=== PATIENT | male | born 1990 | race African-American/Black ===

== ENCOUNTER 2016-03-22 23:50 | Emergency (ER) ==
[2016-03-23] MEDS ORDERED: DECADRON IM ONE (00:20)
[2016-03-23] MEDS ORDERED: ROCEPHIN IM ONE (00:20)
[2016-03-23] MEDS ORDERED: XYLOCAINE-MPF 1% INJ ONE (00:20)
[2016-03-23] MEDS ORDERED: MOTRIN PO ONE (00:25)
--- NOTE | 2016-03-23 00:25 | PROVIDER DOCUMENTATION ---
HPI-EENT General - General Chief Complaint: Cold Symptoms Stated Complaint: SORE THROAT,ITCHING EYES Time Seen by Provider: 03/23/16 00:03 Source: patient Allergies/Adverse Reactions: Patient Allergies Allergy/AdvReac Type Severity Reaction Status Date / Time No Known Allergies Allergy Verified 07/28/15 18:22 - History of Present Illness-EENT General Nature of Presenting Problem: 25 y/o AAM presents to the ED with a sore throat and watery itchy eyes that began this morning. Pt denies cou EENT Location: reports: eye (R), eye (L), throat Quality of Pain: reports: aching (throat), other (itchy eyes) Severity: reports: moderate Onset/Duration: reports: this morning Timing: reports: still present Prearrival Treatment: Initiated no prearrival treatment Associated Symptoms: reports: sore throat. denies: cough, facial pain/swelling , nasal congestion/drainage, sinus infection Review of Systems - Adult - REVIEW OF SYSTEMS - ADULT Constitutional: reports: fever. denies: chills Eyes: reports: no symptoms reported Ears, Nose, Mouth & Throat: reports: ear pain, throat pain. denies: hearing loss, sinus problem, mouth/dental pain Cardiovascular: denies: chest pain, edema Respiratory: denies: cough, shortness of breath, wheezing Gastrointestinal: reports: no symptoms reported Genitourinary: reports: no symptoms reported Musculoskeletal: reports: no symptoms reported Integumentary: reports: no symptoms reported Neurological: reports: no symptoms reported Psychiatric: reports: no symptoms reported Endocrine: reports: no symptoms reported Hematologic/Lymphatic: reports: no symptoms reported Allergic/Immunologic: reports: no symptoms reported All Other Systems: Reviewed and Negative Past History - Adult - PAST MEDICAL HISTORY-ADULT Review of Records: reports: Old Records Reviewed, Nursing Assessment Review, Medications Reviewed Major Childhood Illnesses: reports: denies history - SOCIAL HISTORY Smoking: cigarettes, greater than 1 pack/day Living Situation: family Physical Exam- EENT - Physical Exam EENT Initial Vital Signs Reviewed: Yes General Appearance: appears well, alert, no apparent distress Eye Exam: bilateral eye: PERRL, conjunctival inflammation Ear Exam: bilateral ear: auricle normal, canal normal, TM normal Nasal Exam: normal inspection. negative: active bleeding Throat Exam: pharynx swelling, pharynx tenderness, tonsillar exudate Neck: non-tender, full range of motion, supple, normal inspection Respiratory: lungs clear, normal breath sounds, no pleuratic chest pain, no respiratory distress, no accessory muscle use Cardiovascular: normal peripheral pulses, regular rate, rhythm Abdominal Exam: normal bowel sounds, non tender, soft Back Exam: normal inspection, no CVA tenderness, no vertebral tenderness Extremity: normal range of motion, non-tender, normal gait, normal inspection Integumentary: normal color, normal turgor, warm/dry Neurologic: grossly normal, no motor/sensory deficits Psych/Mental Status: normal mood/affect, normal thought content, normal thought process, oriented x 3 Progress - PLAN OF CARE/RESULTS Progress/Plan/Lab Results: Orders Category Date Time Status DIRECT STREP PL Stat Lab 03/23/16 00:06 Received CefTRIAXONE [Rocephin] Med 03/23/16 00:20 Discontinued 1 gm IM NOW ONE Dexamethasone [Decadron] Med 03/23/16 00:20 Discontinued 10 mg IM NOW ONE Ibuprofen [Motrin] Med 03/23/16 00:25 Discontinued 800 mg PO NOW ONE Lidocaine 1% Pf [Xylocaine-Mpf 1%] Med 03/23/16 00:20 Discontinued 5 ml INJ NOW ONE Vital Signs Temp Pulse Resp BP Pulse Ox 03/23/16 00:03 101.9 F H 83 18 121/70 99 No Known Allergies Allergy (Verified 07/28/15 18:22) Amoxicillin/Pot Clavulanate [Augmentin] 875 mg PO Q12HR #14 tablet 03/23/16 Ibuprofen [Motrin] 800 mg PO Q8H PRN PRN #20 tablet 03/23/16 Methylprednisolone [Medrol Dosepak] 4 mg PO DIRECTED #1 package 03/23/16 Omeprazole [Prilosec] 20 mg PO DAILY@0700 #20 capsule 03/23/16 Departure - Departure Time of Disposition Order: 00:31 DIAGNOSIS: Pharyngitis Qualifiers: Pharyngitis/tonsillitis etiology: unspecified etiology Qualified Code(s): J02.9 - Acute pharyngitis, unspecified URI (upper respiratory infection) Qualifiers: URI type: unspecified URI Qualified Code(s): J06.9 - Acute upper respiratory infection, unspecified Disposition: HOME 01 Certified Medical Emergency: Emergent Condition: Stable Additional Instructions: ED Follow Up Instructions: You have been treated by a care provider in the Emergency Department. These instructions are being provided to you so you can have an understanding of how to care for yourself upon discharge. Upon discharge from the Emergency Department, you are responsible for making arrangements for follow-up care by a physician of your choice. Take all prescribed medications as directed. Return to the Emergency Department immediately for any new or worsening symptoms. You may call the Physician Referral phone number at [phone] to obtain a list of Physicians who are taking new patients. Prescriptions: Amoxicillin/Pot Clavulanate [Augmentin] 875 mg PO Q12HR #14 tablet Methylprednisolone [Medrol Dosepak] 4 mg PO DIRECTED #1 package Ibuprofen [Motrin] 800 mg PO Q8H PRN PRN #20 tablet PRN Reason: inflammation Omeprazole [Prilosec] 20 mg PO DAILY@0700 #20 capsule Referrals: None,PCP [Primary Care Provider] - Alysa Lara MD [STAFF PHYSICIAN] - Forms: Return to School/Parent Work Instructions: Amoxicillin capsules or tablets, Ibuprofen tablets and capsules, Methylprednisolone tablets, Omeprazole tablets (OTC) Attestation - Scribe Verification/Attestation Scribe:: Darwin Javier Acting as Scribe for:: Mahad Caldera Scribe documention review:: This chart was documented by a scribe and accurately reflects the service the provider performed and the decisions made by the provider. - Physician/ Mid-level Attestation Patient care was provided by Mid-level provider ([employer]ATER/PA):: Yes Mid-level provider:: Mahad Caldera Mid-level documentation review:: The Mid-level provider documentation, treatment plan and medical decision making was reviewed by the physician who agrees with all treatment and medical decision making by the [facility].
[2016-03-23 01:26] VITALS: BP 128/70
== END 2016-03-23 01:33 | disposition home or self-care (01) ==
LOC: P.ED 23:50
DX: J02.9 Acute pharyngitis, unspecified (principal); J06.9 Acute upper respiratory infection, unspecified; H57.8 Other specified disorders of eye and adnexa; H92.09 Otalgia, unspecified ear; R50.9 Fever, unspecified; F17.210 Nicotine dependence, cigarettes, uncomplicated
CPT/HCPCS: 87430; 96372; J0696; J1100